=== PATIENT | male | born 1995 | race Caucasian/White ===

== ENCOUNTER 2016-09-23 21:34 | Emergency (ER) | payer OTHER ==
[~2016-09-23 21:34] MED LIST: ADULT LOW DOSE81 M1 PO; ALBUTEROL SULF8.5 GM IH; ATIVAN PO; ATIVAN0.5 MG PO; ATIVAN1 M2 PO; BALSALAZIDE DI750 M1 PO; CIPRO500 M1 PO; CITALOPRAM PO; CYCLOBENZAPRINE10 M1 PO; ENTOCORT EC3 M1 PO; IBUPROFEN800 M1 PO; KLONOPIN0.5 MG; KLONOPIN2 MG PO; MDI INH; POLYMYXIN B-TMP10 M1 OP; PRILOSEC40 MG PO; PROTONIX40 MG PO; VENTOLIN HFA18 G2 PO; VIBRAMYCIN100 MG PO; ZOFRAN ODT4 MG PO; ZOFRAN ODT4 MG/UDTAB PO; ZOFRAN4 MG PO
== END 2016-09-23 22:51 ==
LOC: EDMED 21:34
DX: T18.9XXA Foreign body of alimentary tract, part unspecified, initial encounter (principal); J45.909 Unspecified asthma, uncomplicated; Z87.442 Personal history of urinary calculi; Z86.711 Personal history of pulmonary embolism